=== PATIENT | female | born 1985 | race Two or more races ===

== ENCOUNTER 2017-11-15 08:58 | Emergency (ER) | payer OTHER ==
[~2017-11-15] VITALS: Ht 154.9 cm; Wt 77.0 kg
[~2017-11-15 08:58] MED LIST: OXYC-360 PO; PREN0.01 PO
[2017-11-15 09:00] VITALS: BP 135/63; PULSE 102; RESP 16; TEMP 99.6; O2SAT 98
[2017-11-15] MEDS ORDERED: OSEL75 PO (09:43)
--- NOTE | 2017-11-15 09:44 | PD ---
HPI Chief Complaint: Cold / Flu Symptoms Time Seen by Provider: 09:09 Travel History International Travel<30 days: No Contact w/Intl Traveler<30days: No Traveled to known affect area: No History of Present Illness HPI This is a 32-year-old female here with flulike illness times one day. She reports fever, body aches, cough. She also reports several episodes of diarrhea yesterday. No abdominal pain. She reports her daughter had similar symptoms and was diagnosed with the flu. She denies chest pain or shortness of breath. Symptoms severity is moderate. No aggravating or alleviating factors. PFSH Past Medical History Medical History: Denies Significant Hx Hx Anticoagulant Therapy: No Diabetes: No Diminished Hearing: No Tetanus Vaccination: Unknown ?: Not Past Surgical History Tonsillectomy: Yes Social History Alcohol Use: No Tobacco Use: No Substance Use: No Allergies-Medications (Allergen,Severity, Reaction): Coded Allergies: No Known Allergies (Verified Allergy, Unknown, 11/15/17) Reported Meds & Prescriptions Reported Meds & Active Scripts Active No Active Prescriptions or Reported Medications Review of Systems Except as stated in HPI: all other systems reviewed are Neg General / Constitutional: Positive: Fever Eyes: No: Visual changes HENT: Positive: Sore Throat, Congestion Respiratory: Positive: Cough Gastrointestinal: No: Abdominal Pain Genitourinary: No: Dysuria Musculoskeletal: Positive: Myalgias Skin: No Rash Physical Exam Narrative GENERAL: Alert 32-year-old female. Nontoxic appearing. SKIN: Warm and dry. No rash HEAD: Normocephalic. EYES: No injection or drainage. Ear/nose/throat: No TM erythema. Clear nasal discharge. Mild pharyngeal erythema without tonsillar hypertrophy or exudate. Uvula is midline. Airway is patent. NECK: Supple. No lymphadenopathy. No meningismus. CARDIOVASCULAR: Regular rate and rhythm. No murmur appreciated. RESPIRATORY: Breath sounds equal bilaterally. No accessory muscle use. GASTROINTESTINAL: Abdomen soft, non-tender, nondistended. MUSCULOSKELETAL: No cyanosis, or edema. BACK: No CVA tenderness. Data Data Last Documented VS Vital Signs Date Time Temp Pulse Resp B/P (MAP) Pulse Ox O2 Delivery O2 Flow Rate FiO2 11/15/17 09:00 99.6 102 16 135/63 (87) 98 Orders Orders Influenzae A/B Antigen (11/15/17 09:13) MDM Medical Decision Making Medical Screen Exam Complete: Yes Emergency Medical Condition: Yes Differential Diagnosis Influenza, bronchitis, pneumonia Narrative Course 32-year-old female here with flulike illness times one day. She is nontoxic appearing. Her vital signs are stable. Influenza testing is positive for influenza A. She'll be treated with Tamiflu. Symptomatic treatment discussed. Diagnosis Primary Impression: Influenza A Referrals: Primary Care Physician Additional Instructions: Rest and stay well hydrated. Tylenol and ibuprofen for fever control. Scripts Oseltamivir (Tamiflu) 75 Mg Cap 75 MG PO BID for Mgmt Viral Infection for 5 Days, #10 CAP 0 Refills Prov: Lisa Lee 11/15/17 Disposition: 01 DISCHARGE HOME Condition: Stable Lisa Lee Nov 15, 2017 09:44
== END 2017-11-15 09:52 | disposition home or self-care (01) ==
LOC: PHEFT 08:58
DX: J09.X2 Influenza due to identified novel influenza A virus with other respiratory manifestations (principal); R19.7 Diarrhea, unspecified
CPT/HCPCS: 87804; 99283